=== PATIENT | female | born 1960 | race Caucasian/White ===

== ENCOUNTER 2016-08-29 17:37 | Emergency (ER) | payer SELFPAY ==
[~2016-08-29] VITALS: Ht 162.6 cm; Wt 71.8 kg
[2016-08-29 17:41] VITALS: BP 123/74
[2016-08-29] MEDS ORDERED: KETOROLAC 30 MG/1 ML IM ONE (18:00)
[2016-08-29] MEDS ORDERED: KETOROLAC 30 MG/1 ML ONE (18:22)
== END 2016-08-29 19:14 | disposition home or self-care (01) ==
LOC: ED 19:08
DX: S76.012A Strain of muscle, fascia and tendon of left hip, initial encounter (principal); X58.XXXA Exposure to other specified factors, initial encounter; Y93.89 Activity, other specified; Y92.89 Other specified places as the place of occurrence of the external cause; Y99.9 Unspecified external cause status
CPT/HCPCS: 73502; 96372; 99284; J1885

== ENCOUNTER 2016-12-03 02:01 | Emergency (ER) | payer OTHER ==
[~2016-12-03] VITALS: Ht 162.6 cm; Wt 71.3 kg
[2016-12-03 02:58] LABS: HEMATOCRIT 36.7 % (34.6-47.8); HEMOGLOBIN 12.4 g/dL (11.7-16.4); WHITE BLOOD COUNT 6.2 x10^3/uL (3.4-10)
[2016-12-03 03:09] LABS: ASPARTATE AMINO TRANSFERASE 19 U/L (15-37); BLOOD UREA NITROGEN 27 mg/dL (7-18)
[2016-12-03] MEDS ORDERED: ONDANSETRON ODT 4 MG ONE (03:48)
[2016-12-03 03:49] VITALS: BP 107/62
[2016-12-03] MEDS ORDERED: ONDANSETRON ODT 4 MG PO ONE (04:00)
== END 2016-12-03 04:15 | disposition home or self-care (01) ==
LOC: ED 03:15
DX: K92.1 Melena (principal)
CPT/HCPCS: 36415; 80053; 84703; 85025; 85610; 86850; 86900; 99284; Q0162

== ENCOUNTER 2017-03-24 09:18 | Emergency (ER) | payer OTHER ==
[~2017-03-24] VITALS: Ht 160 cm; Wt 66.2 kg
[2017-03-24] MEDS ORDERED: ONDANSETRON 2MG/ML, 2ML ONE (10:00)
[2017-03-24] MEDS ORDERED: SODIUM CHLORIDE 0.9% 1,000ML IVBOLUS ONE (10:00)
[2017-03-24] MEDS ORDERED: ONDANSETRON 2MG/ML, 2ML IVPush ONE (10:00)
[2017-03-24 10:24] LABS: ALANINE AMINOTRANSFERASE 28 U/L (12-78); ALBUMIN 4.2 g/dL (3.4-5.0); ANION GAP 7 mmol/L (5-15); CALCIUM 9.4 mg/dL (8.5-10.1); CHLORIDE 109 mmol/L (98-107); CREATININE 0.73 mg/dL (0.55-1.02)
[2017-03-24 10:27] LABS: BASOPHILS # (AUTO) 0.06 x10^3/uL (0-0.1); BASOPHILS % (AUTO) 1 % (0-1); EOSINOPHILS # (AUTO) 0.04 x10^3/uL (0-0.4); EOSINOPHILS % (AUTO) 0 % (1-7); LYMPHOCYTES # (AUTO) 1.36 x10^3/uL (1-3.4); LYMPHOCYTES % (AUTO) 11 % (22-44); MD NO; MEAN CORPUSCULAR HEMOGLOBIN 23.3 pg (27.0-34.8); MEAN CORPUSCULAR HGB CONC 32.6 g/dL (32.4-35.8); MEAN CORPUSCULAR VOLUME 71.5 fL (80-100); MEAN PLATELET VOLUME 8.9 fL (7.4-10.4); MONOCYTES % (AUTO) 10 % (2-9); NEUTROPHILS # (AUTO) 9.62 x10^3/uL (1.8-6.8); NEUTROPHILS % (AUTO) 78 % (42-75); PLATELET COUNT 472 x10^3/uL (130-400); RED BLOOD COUNT 5.17 x10^6/uL (3.82-5.3)
[2017-03-24 10:28] LABS: ALKALINE PHOSPHATASE 102 U/L (45-117); BILIRUBIN,TOTAL 0.5 mg/dL (0.2-1.0)
[2017-03-24 10:58] VITALS: BP 118/67
== END 2017-03-24 11:00 | disposition home or self-care (01) ==
LOC: ED 10:45
DX: A09 Infectious gastroenteritis and colitis, unspecified (principal); E86.0 Dehydration; E87.6 Hypokalemia; F17.200 Nicotine dependence, unspecified, uncomplicated
CPT/HCPCS: 36415; 80053; 83690; 84703; 85025; 96361; 96374; 99284; J2405; J7030

== ENCOUNTER 2018-04-09 12:39 | Emergency (ER) | payer SELFPAY ==
[~2018-04-09] VITALS: Ht 162.6 cm; Wt 71.6 kg
[2018-04-09 12:47] VITALS: BP 158/86
[2018-04-09] MEDS ORDERED: HYDROcodone/APAP 5/325 TABLET PO ONE (13:00)
--- NOTE | 2018-04-09 13:07 | NUR ---
TO XR PER KINGSLEY
--- NOTE | 2018-04-09 13:17 | NUR ---
RETURNED FROM RADIOLOGY PER KINGSLEY. PT AMBULATORY TO BR W/ STEADY GAIT.
[2018-04-09] MEDS ORDERED: HYDROcodone/APAP 5/325 TABLET ONE (13:26)
[2018-04-09] MEDS ORDERED: LORazepam 1MG TABLET ONE (13:26)
[2018-04-09] MEDS ORDERED: LORazepam 1MG TABLET PO ONE (13:30)
[2018-04-09] MEDS ORDERED: ASPI-650 PO (13:35)
--- NOTE | 2018-04-09 13:42 | NUR ---
NORCO & ATIVAN GIVEN PER EMAR. PT REPORTS IMPROVEMENT IN PAIN.
== END 2018-04-09 14:00 | disposition home or self-care (01) ==
LOC: ED 12:57
DX: K08.89 Other specified disorders of teeth and supporting structures (principal); F17.200 Nicotine dependence, unspecified, uncomplicated; Z90.89 Acquired absence of other organs
CPT/HCPCS: 70486; 99284

== ENCOUNTER 2019-02-01 09:33 | Emergency (ER) | payer SELFPAY ==
[~2019-02-01] VITALS: Ht 162.6 cm; Wt 76.0 kg
[~2019-02-01 09:33] MED LIST: ASPI-650 PO
[2019-02-01 09:36] VITALS: BP 125/75
[2019-02-01] MEDS ORDERED: IBUPROFEN 200 MG TABLET ONE (09:48)
[2019-02-01] MEDS ORDERED: IBUPROFEN 200 MG TABLET PO ONE (10:00)
== END 2019-02-01 09:56 | disposition home or self-care (01) ==
LOC: ED 09:40
DX: K08.89 Other specified disorders of teeth and supporting structures (principal)
CPT/HCPCS: 99283